=== PATIENT | male | born 1965 | race Caucasian/White ===

== ENCOUNTER → 2020-09-15 | Outpatient (CLI) | payer OTHER ==
[~2020-09-15] MED LIST: DIFLUCAN150 MG PO; FLOMAX 0.4 MG0.4 MG PO; NORCO 5-325 TA1 EACH PO
== END ==
LOC: KOH-I 10:27
DX: R60.0 Localized edema (principal); M79.89 Other specified soft tissue disorders
CPT/HCPCS: 93971

== ENCOUNTER → 2021-03-07 | Outpatient (CLI) | payer MEDICARE | LOC: KOH-I 12:55 | DX: M25.562 Pain in left knee (principal) | CPT/HCPCS: 73562 ==

== ENCOUNTER → 2021-07-26 | Outpatient (CLI) | payer MEDICARE | LOC: KOH-I 13:27 | DX: M25.562 Pain in left knee (principal) | CPT/HCPCS: 73562 ==